=== PATIENT | female | born 1960 | race Asian ===

== ENCOUNTER 2019-03-22 11:36 | Emergency (ER) | payer BC ==
[~2019-03-22] VITALS: Ht 175.3 cm; Wt 65.8 kg
[2019-03-22 11:40] VITALS: BP_SYST 159
[2019-03-22] MEDS ORDERED: LORazepam 1 MG TABLET PO ONE (12:00)
== END 2019-03-22 13:55 | disposition home or self-care (01) ==
LOC: SED 11:36
DX: F41.9 Anxiety disorder, unspecified (principal); R03.0 Elevated blood-pressure reading, without diagnosis of hypertension; Z86.79 Personal history of other diseases of the circulatory system
CPT/HCPCS: 99284